=== PATIENT | female | born 1985 | race Caucasian/White ===

== ENCOUNTER 2016-06-08 12:27 | Emergency (ER) | payer SELFPAY ==
[~2016-06-08] VITALS: Ht 157.5 cm; Wt 62.0 kg
[2016-06-08 12:29] VITALS: BP 125/75; PULSE 98; RESP 17; TEMP 98.4; O2SAT 98
--- NOTE | 2016-06-08 12:44 | PD ---
Physical Exam Time Seen by Provider: 12:41 Narrative 30yo F w/ c/o fever for the past few days w/ onset of cough worse at night. Reports Chest tightness and SOB. Hx of activity induced Asthma and pneumonia. Similar symptoms of pneumonia. Fever 101.6 on Sunday. Reports body aches and RHODES. Patient stable. Patient seen in triage. Awaiting bed placement. Data Data Last Documented VS Vital Signs Date Time Temp Pulse Resp B/P Pulse Ox O2 Delivery O2 Flow Rate FiO2 06/08/16 12:29 98.4 98 17 125/75 98 MDM Supervised Visit with ISHMAEL: Asmita Aguila Jun 08, 2016 12:44
--- NOTE | 2016-06-08 13:02 | PD ---
HPI . Coughing for 5 days Chief Complaint: Cold / Flu Symptoms Time Seen by Provider: 13:01 Travel History International Travel<30 days: No Contact w/Intl Traveler<30days: No Traveled to known affect area: No History of Present Illness HPI 30-year-old female here with complaints of coughing for the past 5 days. On Sunday patient had a temperature of 101.6. Tells me she's not had a fever since then, but is complaining of increased amounts of coughing. Occasionally has some yellow/green/brown-looking mucus with the cough. She decided to come in for evaluation as she has had pneumonia in the past. She is accompanied by her [id number]. At time of examination she denies any fever, chills, chest pain, nausea, or shortness of breath PFSH Past Medical History ?: Not LMP: 05/2016 Social History Tobacco Use: Yes Allergies-Medications (Allergen,Severity, Reaction): Coded Allergies: No Known Allergies (Unverified , 06/08/16) Reported Meds & Prescriptions Reported Meds & Active Scripts Active Proair Hfa 8.5 GM Inh (Albuterol Sulfate) 90 Mcg/Act Aer 2 Puff INH Q6H PRN 108 mcg/actuation Zithromax Z-Kwaku (Azithromycin) 250 Mg Dspk 250 Mg PO DIRECTED 500 MG (2 tabs) day 1, then 1 tab days 2-5. Prednisone 50 Mg Tab 50 Mg PO DAILY Review of Systems General / Constitutional: No: Fever Eyes: No: Visual changes HENT: No: Headaches Cardiovascular: No: Chest Pain or Discomfort Respiratory: Positive: Cough, No: Shortness of Breath Gastrointestinal: No: Abdominal Pain Genitourinary: No: Dysuria Musculoskeletal: No: Pain Skin: No Rash Neurologic: No: Weakness Psychiatric: No: Depression Endocrine: No: Polydipsia Hematologic/Lymphatic: No: Easy Bruising Physical Exam Narrative GENERAL: AAO x 3, no acute distress, Well-nourished, well-developed patient. SKIN: Warm and dry. No visible rashes or bruising. HEAD: Normocephalic and atraumatic. EYES: No scleral icterus. No injection or drainage. ENT: No nasal drainage noted. Mucous membranes pink. Airway patent. Mild to moderate posterior pharynx erythema without exudates or edema. TMs normal bilaterally NECK: Supple, trachea midline. No JVD. No lymphadenopathy. CARDIOVASCULAR: Regular rate and rhythm without murmurs, gallops, or rubs. RESPIRATORY: Breath sounds equal bilaterally. No accessory muscle use. No rhonchi or rales. No wheezing. Dry cough heard throughout examination GASTROINTESTINAL: Abdomen soft, non-tender, nondistended. EXTREMITIES: No cyanosis or edema. BACK: Nontender without obvious deformity. No CVA tenderness. PSYCH: AAO x 3, normal affect. Data Data Last Documented VS Vital Signs Date Time Temp Pulse Resp B/P Pulse Ox O2 Delivery O2 Flow Rate FiO2 06/08/16 12:29 98.4 98 17 125/75 98 MDM Medical Decision Making Medical Screen Exam Complete: Yes Emergency Medical Condition: Yes Medical Record Reviewed: Yes Differential Diagnosis Bronchitis, pharyngitis, less likely pneumonia, sinusitis Narrative Course 30-year-old female here with complaints of coughing for the past 5 days. On Sunday patient had a temperature of 101.6. Tells me she's not had a fever since then, but is complaining of increased amounts of coughing. Occasionally has some yellow/green/brown-looking mucus with the cough. She decided to come in for evaluation as she has had pneumonia in the past. She is accompanied by her [id number]. At time of examination she denies any fever, chills, chest pain, nausea, or shortness of breath Patient seen and examined. She appears to have a bronchitis and pharyngitis. I'll go head and treat with Z-Kwaku, prednisone and Proair inhaler. Advised her that if her symptoms continue to worsen despite medications, to return to the emergency department for further evaluation. She will follow-up with her primary care provider. Patient verbalized understanding of instructions, questions were answered, and thanked me for their care. I advised them if their condition worsens, please return to the nearest emergency room for further care. Diagnosis Primary Impression: Acute bronchitis Qualified Code: J20.9 - Acute bronchitis, unspecified organism Additional Impression: Acute pharyngitis Qualified Code: J02.9 - Acute pharyngitis, unspecified etiology Patient Instructions: General Instructions Additional Instructions: As we discussed the cough can last 6-8 weeks. Take medications as prescribed. If you are a smoker, try to quit. Follow up with your primary care provider. If you develop sudden onset or worsening of shortness or breath, please go to the nearest emergency room. Please return to emergency department if your symptoms return or worsen. Follow up with your primary care provider. Take medications as prescribed. Med/Other Pt SpecificInfo: Prescription(s) given Scripts Albuterol 8.5 GM Inh (Proair Hfa 8.5 GM Inh)90 Mcg/Act Aer2 Puff INH Q6H PRN ( SHORTNESS OF BREATH) #1 INHALER Ref 0 108 mcg/actuation Prov:Kalli Awad MD 06/08/16 Azithromycin (Zithromax Z-Kwaku)250 Mg [id number] Mg PO DIRECTED #1 DSPK Ref 0 500 MG (2 tabs) day 1, then 1 tab days 2-5. Prov:Kalli Awad MD 06/08/16 Prednisone 50 Mg Tab50 Mg PO DAILY #5 TAB Prov:Kalli Awad MD 06/08/16 Disposition: 01 DISCHARGE HOME Condition: Stable Yesenia Bey Jun 08, 2016 13:02
[2016-06-08] MEDS ORDERED: ALBUAER3 INH (13:09)
[2016-06-08] MEDS ORDERED: ZITHTAB PO (13:09)
[2016-06-08] MEDS ORDERED: PRED50 PO (13:09)
== END 2016-06-08 13:20 | disposition home or self-care (01) ==
LOC: NEPK 12:27
DX: J20.9 Acute bronchitis, unspecified (principal); J02.9 Acute pharyngitis, unspecified; Z72.0 Tobacco use
CPT/HCPCS: 99283

== ENCOUNTER 2017-02-23 13:09 | Inpatient (IN) | payer SELFPAY ==
[~2017-02-23] VITALS: Ht 157.5 cm; Wt 62.3 kg
[~2017-02-23 13:09] MED LIST: ALBUAER3 INH; PRED50 PO; ZITHTAB PO
[2017-02-23 13:10] VITALS: BP 130/93; PULSE 77; RESP 18; TEMP 98.3; O2SAT 100
[2017-02-23] MEDS ORDERED: SODIUM CHLOR 0.9% 1000 ML INJ 1,000 ML IV SCH (14:13)
[2017-02-23] MEDS ORDERED: LIDOCAINE VISCOUS 2% SOLN 15 ML UDC PO ONE (14:15)
[2017-02-23] MEDS ORDERED: ONDANSETRON HCL 4 MG/2 ML VIAL IVP ONE (14:15)
[2017-02-23] MEDS ORDERED: PANTOPRAZOLE SODIUM 40 MG VIAL IVP ONE (14:15)
[2017-02-23] MEDS ORDERED: SODIUM CHLORIDE 0.9% FLUSH 10 ML FLUSH IV FLUSH PRN ×4 (14:15→16:15)
[2017-02-23] MEDS ORDERED: ALUMINUM/MAGNESIUM/SIMETH 30 ML CUP PO ONE (14:15)
[2017-02-23] MEDS ORDERED: MORPHINE SULFATE 4 MG/ML INJ IV PUSH ONE (14:15)
--- NOTE | 2017-02-23 14:28 | PD ---
HPI Chief Complaint: Abdominal Pain Time Seen by Provider: 14:08 Travel History International Travel<30 days: No Contact w/Intl Traveler<30days: No Traveled to known affect area: No History of Present Illness HPI This is a 31-year-old female who presents for evaluation of abdominal pain. Symptoms started this morning. She describes it as a sharp crampy pain in the epigastrium that radiates into the back and left upper quadrant. Symptoms are constant, associated with some nausea and vomiting. She reports a history of pancreatitis in the past. She reports daily alcohol use. Denies any history of abdominal surgeries. Denies fevers, chills, flank pain, dysuria, cough or congestion, rash or recent travel. She has no other complaints at this time. [facility] Past Medical History ?: Not LMP: 02/23/17 Social History Tobacco Use: Yes Allergies-Medications (Allergen,Severity, Reaction): Coded Allergies: No Known Allergies (Unverified Allergy, Unknown, 02/23/17) Reported Meds & Prescriptions Reported Meds & Active Scripts Active No Active Prescriptions or Reported Medications Review of Systems Except as stated in HPI: all other systems reviewed are Neg Physical Exam Narrative GENERAL: Well-nourished female who appears uncomfortable on initial examination SKIN: Warm and dry. HEAD: Atraumatic. Normocephalic. EYES: Pupils equal and round. No scleral icterus. No injection or drainage. ENT: No nasal bleeding or discharge. Mucous membranes pink and moist. NECK: Trachea midline. No JVD. CARDIOVASCULAR: Regular rate and rhythm. No murmur appreciated. RESPIRATORY: No accessory muscle use. Clear to auscultation. Breath sounds equal bilaterally. GASTROINTESTINAL: Abdomen soft, focal epigastric tenderness without guarding. No right upper quadrant tenderness. No CVA tenderness. MUSCULOSKELETAL: No obvious deformities. No clubbing. No cyanosis. No edema. NEUROLOGICAL: Awake and alert. No obvious cranial nerve deficits. Motor grossly within normal limits. Normal speech. PSYCHIATRIC: Appropriate mood and affect; insight and judgment normal. Data Data Last Documented VS Vital Signs Date Time Temp Pulse Resp B/P (MAP) Pulse Ox O2 Delivery O2 Flow Rate FiO2 02/23/17 14:45 18 02/23/17 13:10 98.3 77 130/93 (105) 100 Room Air Orders Orders Complete Blood Count With Diff (02/23/17 14:13) Comprehensive Metabolic Panel (02/23/17 14:13) Lipase (02/23/17 14:13) Urinalysis - C+S If Indicated (02/23/17 14:13) Iv Access Insert/Monitor (02/23/17 14:13) Ecg Monitoring (02/23/17 14:13) Oximetry (02/23/17 14:13) Morphine Inj (Morphine Inj) (02/23/17 14:15) Ondansetron Inj (Zofran Inj) (02/23/17 14:15) Pantoprazole Inj (Protonix Inj) (02/23/17 14:15) Sodium Chlor 0.9% 1000 Ml Inj (Ns 1000 M (02/23/17 14:13) Sodium Chloride 0.9% Flush (Ns Flush) (02/23/17 14:15) Al-Mag Hy-Si 40-40-4 Mg/Ml Liq (Mag-Al P (02/23/17 14:15) Lidocaine 2% Viscous (Xylocaine 2% Visco (02/23/17 14:15) Ed Urine Pregnancytest Poc (02/23/17 14:13) Morphine Inj (Morphine Inj) (02/23/17 14:52) Electrocardiogram (02/23/17 ) Potassium Chlor 20 Meq Premix (Kcl 20 Me (02/23/17 15:45) Potassium Chloride (Kcl) (02/23/17 15:45) Ct Abd/Pel W Iv Contrast(Rout) (02/23/17 15:41) Magnesium (Mg) (02/23/17 16:12) Comprehensive Metabolic Panel (02/24/17 06:00) Free Thyroxine (T4) (02/24/17 06:00) Hemoglobin (Hgb) A1c (02/24/17 06:00) Magnesium (Mg) (02/24/17 06:00) Phosphorus (Po4) (02/24/17 06:00) Thyroid Stimulating Hormone (02/24/17 06:00) Complete Blood Count With Diff (02/24/17 06:00) Admit Order (Ed Use Only) (02/23/17 16:15) Labs Laboratory Tests Test 02/23/17 14:40 White Blood Count 11.3 TH/MM3 Red Blood Count 3.84 MIL/MM3 Hemoglobin 13.7 GM/DL Hematocrit 40.1 % Mean Corpuscular Volume 104.5 FL Mean Corpuscular Hemoglobin 35.7 PG Mean Corpuscular Hemoglobin Concent 34.1 % Red Cell Distribution Width 15.0 % Platelet Count 195 TH/MM3 Mean Platelet Volume 9.5 FL Neutrophils (%) (Auto) 82.5 % Lymphocytes (%) (Auto) 12.7 % Monocytes (%) (Auto) 4.3 % Eosinophils (%) (Auto) 0.3 % Basophils (%) (Auto) 0.2 % Neutrophils # (Auto) 9.3 TH/MM3 Lymphocytes # (Auto) 1.4 TH/MM3 Monocytes # (Auto) 0.5 TH/MM3 Eosinophils # (Auto) 0.0 TH/MM3 Basophils # (Auto) 0.0 TH/MM3 CBC Comment DIFF FINAL Differential Comment Blood Urea Nitrogen 6 MG/DL Creatinine 0.61 MG/DL Random Glucose 144 MG/DL Total Protein 6.7 GM/DL Albumin 3.5 GM/DL Calcium Level 8.7 MG/DL Alkaline Phosphatase 109 U/L Aspartate Amino Transf (AST/SGOT) 76 U/L Alanine Aminotransferase (ALT/SGPT) 37 U/L Total Bilirubin 0.9 MG/DL Sodium Level 135 MEQ/L Potassium Level 2.5 MEQ/L Chloride Level 96 MEQ/L Carbon Dioxide Level 30.4 MEQ/L Anion Gap 9 MEQ/L Estimat Glomerular Filtration Rate 114 ML/MIN Lipase 60775 U/L MDM Medical Decision Making Medical Screen Exam Complete: Yes Emergency Medical Condition: Yes Medical Record Reviewed: Yes Differential Diagnosis Pancreatitis, biliary colic, peptic ulcer disease, gastroenteritis, colitis Narrative Course 31-year-old female with one-day history of epigastric pain, nausea and vomiting. Plan is for basic lab work. The patient be given IV fluids, Zofran, morphine, Protonix, GI cocktail. CBC reveals a WBC count of 11.3. CMP reveals a lipase of 15,718, potassium 2.5. The patient will be given 40 mEq of oral potassium and 20 mEq of IV potassium. She was placed on ECG monitoring. Twelve-lead EKG was obtained. A CT of the abdomen pelvis has been ordered and the patient will be admitted for further treatment of her pancreatitis, hypokalemia. Diagnosis Primary Impression: Pancreatitis Additional Impression: Hypokalemia Admitting Information Admitting Physician Requests: Admit Scripts No Active Prescriptions or Reported Meds Alexys Lara Feb 23, 2017 14:28
[2017-02-23] MEDS ORDERED: MORPHINE SULFATE 8 MG/ML INJ ONE (14:52)
[2017-02-23 15:07] LABS: AUTOMATED NEUTROPHIL # 9.3 TH/MM3 (1.8-7.7); BASOPHIL % 0.2 % (0.0-2.0); EOSINOPHIL % 0.3 % (0.0-4.0); HEMATOCRIT 40.1 % (35.0-46.0); HEMOGLOBIN 13.7 GM/DL (11.6-15.3); LYMPH % 12.7 % (9.0-44.0); LYMPHOCYTE # 1.4 TH/MM3 (1.0-4.8); MEAN CELL VOLUME 104.5 FL (80.0-100.0); MEAN CORPUSCULAR HEMOGLOBIN 35.7 PG (27.0-34.0); MEAN CORPUSCULAR HGB CONC 34.1 % (32.0-36.0); MEAN PLATELET VOLUME 9.5 FL (7.0-11.0); MONO % 4.3 % (0.0-8.0); MONOCYTE # 0.5 TH/MM3 (0-0.9); NEUT % 82.5 % (16.0-70.0); PLATELET COUNT 195 TH/MM3 (150-450); RED BLOOD COUNT 3.84 MIL/MM3 (4.00-5.30); WHITE BLOOD COUNT 11.3 TH/MM3 (4.0-11.0)
[2017-02-23 15:38] LABS: ALBUMIN 3.5 GM/DL (3.4-5.0); ALKALINE PHOSPHATASE 109 U/L (45-117); ALT (GPT) 37 U/L (10-53); AST (GOT) 76 U/L (15-37); BICARBONATE 30.4 MEQ/L (21.0-32.0); BLOOD UREA NITROGEN 6 MG/DL (7-18); CALCIUM 8.7 MG/DL (8.5-10.1); CHLORIDE 96 MEQ/L (98-107); CREATININE 0.61 MG/DL (0.50-1.00); GLOMERULAR FILTRATION RATE 114 ML/MIN (>89); GLUCOSE,RANDOM 144 MG/DL (74-106); LIPASE 15718 U/L (73-393); SODIUM (NA) 135 MEQ/L (136-145); TOTAL BILIRUBIN ADULT 0.9 MG/DL (0.2-1.0); TOTAL PROTEIN 6.7 GM/DL (6.4-8.2)
[2017-02-23] MEDS ORDERED: POTASSIUM CHLORIDE 20 MEQ CONTROLLED RELEASE TAB PO ONE (15:45)
[2017-02-23] MEDS ORDERED: POTASSIUM CHLOR 20 MEQ PREMIX 100 ML IV ONE (15:45)
[2017-02-23] MEDS ORDERED: MORPHINE SULFATE 2 MG/ML INJ IV PUSH PRN ×2 (16:15)
[2017-02-23] MEDS ORDERED: METOCLOPRAMIDE HCL 10 MG/2 ML VIAL IV PUSH PRN (16:15)
[2017-02-23] MEDS ORDERED: HALOPERIDOL LACTATE 5 MG/ML AMP IM PRN (16:15)
[2017-02-23] MEDS ORDERED: LORazepam 2 MG/ML VIAL IV PUSH PRN ×4 (16:15)
[2017-02-23] MEDS ORDERED: LACTULOSE SYRUP 20 GM/30 ML CUP PO PRN (16:15)
[2017-02-23] MEDS ORDERED: BISACODYL 10 MG SUPP RECTAL PRN (16:15)
[2017-02-23] MEDS ORDERED: LORazepam 2 MG TAB PO PRN (16:15)
[2017-02-23] MEDS ORDERED: ONDANSETRON HCL 4 MG/2 ML VIAL IVP PRN (16:15)
[2017-02-23] MEDS ORDERED: NALOXONE HCL 0.4 MG/ML AMP IV PUSH PRN (16:15)
[2017-02-23] MEDS ORDERED: MAGNESIUM HYDROXIDE SUSP 30 ML CUP PO PRN (16:15)
[2017-02-23] MEDS ORDERED: SENNOSIDES 8.6 MG TAB PO PRN (16:15)
[2017-02-23] MEDS ORDERED: cloNIDine HCL 0.1 MG TAB PO PRN (16:15)
[2017-02-23] MEDS ORDERED: LORazepam 1 MG TAB PO PRN (16:15)
[2017-02-23] MEDS ORDERED: ACETAMINOPHEN 325 MG TAB PO PRN (16:15)
[2017-02-23] MEDS ORDERED: FLUMAZENIL 0.5 MG/5 ML VIAL IV PUSH PRN (16:15)
--- NOTE | 2017-02-23 16:42 | RADRPT ---
EXAM DATE/TIME: 02/23/2017 16:16 [facility] COMPARISON: No previous studies available for comparison. INDICATIONS : Epigasteric pain that radiates to her back.LLQ. IV CONTRAST: 100 cc Omnipaque 350 (iohexol) IV ORAL CONTRAST: No oral contrast ingested. RADIATION DOSE: 5.52 CTDIvol (mGy) MEDICAL HISTORY : None SURGICAL HISTORY : None. ENCOUNTER: Initial ACUITY: 2 days PAIN SCALE: 9/10 LOCATION: Left upper quadrant TECHNIQUE: Volumetric scanning of the abdomen and pelvis was performed. Using automated exposure control and ad justment of the mA and/or kV according to patient size, radiation dose was kept as low as reasonably achievable to obtain optimal diagnostic quality images. DICOM format image data is available electro nically for review and comparison. FINDINGS: Lung base is clear. Moderate fatty replacement to the liver. Spleen unremarkable. Minimal peripanc reatic edema suggesting pancreatitis. Portal vein and splenic vein patent No gallstones Unremarkable kidneys Pelvic contents are unremarkable. There is no free fluid. Review of bone windows reveals only degen erative changes with mild scoliosis. CONCLUSION: Small to moderate radiograph findings of pancreatitis. Trace ascites in the lesser sac is evident. I don't see gallstones. De Marinelli MD FACR on February 23, 2017 at 16:38 Board Certified Radiologist. This report was verified electronically.
[2017-02-23] MEDS ORDERED: IOHEXOL 350 MG/ML 10 ML VIAL (for RAD DIAG) IVCONTRAST ONE (16:52)
[2017-02-23 16:57] LABS: MAGNESIUM 1.7 MG/DL (1.5-2.5); PHOSPHORUS 2.3 MG/DL (2.5-4.9); TRIGLYCERIDES 73 MG/DL (42-150)
--- NOTE | 2017-02-23 16:59 | HHI.HP ---
HPI Service [facility] Hospitalists Primary Care Physician No Primary Care Physician Admission Diagnosis Pancreatitis, hypokalemia Diagnoses: Chief Complaint: Abdominal pain Travel History International Travel<30 Days: No Contact w/Intl Traveler <30 Da: No Traveled to Known Affected Are: No History of Present Illness Patient is a 31-year-old female who presents to [facility] emergency Department for evaluation of abdominal pain. Patient states that her symptoms have started this morning. She states that she has a sharp crampy pain in the epigastrium that radiates into her back and up into her left upper quadrant. Her symptoms are constant which they are associated with some nausea and some vomiting. She reports that she's had pancreatitis once before in the past. She reports that she does shots of alcohol every day. Denies any history of any abdominal surgery. Only surgery she states is dilatation of her urethra Denies any fever or chills flank pain dysuria cough or congestion recent travel no other complaints She was found to have pancreatitis with a quite elevated amylase and will be admitted and GI will be consult and will be kept nothing by mouth Review of Systems Constitutional: DENIES: Diaphoretic episodes, Fatigue, Fever, Weight gain, Weight loss, Chills, Dizziness, Change in appetite, Night Sweats Endocrine: DENIES: Abnorml menstrual pattern, Heat/cold intolerance, Polydipsia , Polyuria, Polyphagia Eyes: DENIES: Blurred vision, Diplopia, Eye inflammation, Eye pain, Vision loss , Photosensitivity Ears, nose, mouth, throat: DENIES: Tinnitus, Hearing loss, Vertigo, Nasal discharge, Oral lesions, Throat pain, Running Nose, Epistaxis, Sinus Pain, Toothache, Odynophagia Respiratory: DENIES: Apneas, Cough, Snoring, Wheezing, Hemoptysis, Sputum production Cardiovascular: DENIES: Chest pain, Palpitations, Syncope, Dyspnea on Exertion , PND, Lower Extremity Edema Gastrointestinal: COMPLAINS OF: Abdominal pain, Nausea, Vomiting, DENIES: Black stools, Bloody stools, Constipation, Diarrhea, Difficulty Swallowing, Anorexia Genitourinary: DENIES: Abnormal vaginal bleeding, Dysmenorrhea, Dyspareunia, Sexual dysfunction, Urgency, Hematuria, Dysuria, Nocturia Musculoskeletal: DENIES: Joint pain, Muscle aches, Stiffness, Joint Swelling Integumentary: DENIES: Abnormal pigmentation, Pruritus, Rash, Nail changes, Breast masses Hematologic/lymphatic: DENIES: Bruising, Lymphadenopathy Immunologic/allergic: DENIES: Eczema, Urticaria Neurologic: DENIES: Abnormal gait, Headache, Localized weakness, Paresthesias, Seizures, Speech Problems, Tremor, Poor Balance Psychiatric: COMPLAINS OF: Anxiety, DENIES: Confusion, Mood changes, Depression , Hallucinations, Agitation, Suicidal Ideation, Homicidal Ideation, Delusions Except as stated in HPI: all other systems reviewed are Neg Past Family Social History Past Medical History Pancreatitis History of multiple urinary tract infections as a child Past Surgical History May be urethral dilatation versus ureteral dilatation Reported Medications Reported Meds & Active Scripts Active No Active Prescriptions or Reported Medications Librax on occasion Allergies: Coded Allergies: No Known Allergies (Unverified Allergy, Unknown, 02/23/17) Active Ordered Medications Current Medications Morphine Sulfate (Morphine Inj) 4 mg ONCE ONCE IV PUSH ; Start 02/23/17 at 14:15 ; Stop 02/23/17 at 14:16; Status DC Ondansetron HCl (Zofran Inj) 4 mg ONCE ONCE IVP Last administered on 02/23/17at 14:45; Start 02/23/17 at 14:15; Stop 02/23/17 at 14:16; Status DC Pantoprazole Sodium (Protonix Inj) 40 mg ONCE ONCE IVP Last administered on 02/23/17at 14:44; Start 02/23/17 at 14:15; Stop 02/23/17 at 14:16; Status DC Sodium Chloride 1,000 ml @ 1,000 mls/hr Q1H IV Last administered on 02/23/17at 14:44; Start 02/23/17 at 14:13; Stop 02/23/17 at 15:12; Status DC Sodium Chloride (NS Flush) 2 ml UNSCH PRN IV FLUSH FLUSH AFTER USING IV ACCESS ; Start 02/23/17 at 14:15 Al Hydrox/Mg Hydrox/Simethicone (Mag-Al Plus Susp Liq) 30 ml ONCE ONCE PO Last administered on 02/23/17at 14:45; Start 02/23/17 at 14:15; Stop 02/23/17 at 14: 16; Status DC Lidocaine HCl (Xylocaine 2% Viscous) 15 ml ONCE ONCE PO Last administered on at 14:45; Start 02/23/17 at 14:15; Stop 02/23/17 at 14:16; Status DC Morphine Sulfate (Morphine Inj) 8 mg STK-MED ONCE .ROUTE Last administered on at 14:56; Start 02/23/17 at 14:52; Stop 02/23/17 at 14:53; Status DC Potassium Chloride 100 ml @ 50 mls/hr BOLUS ONCE IV Last administered on at 15:54; Start 02/23/17 at 15:45; Stop 02/23/17 at 17:44 Potassium Chloride (KCl) 40 meq ONCE ONCE PO Last administered on 02/23/17at 15: 47; Start 02/23/17 at 15:45; Stop 02/23/17 at 15:46; Status DC Sodium Chloride (NS Flush) 2 ml UNSCH PRN IV FLUSH FLUSH AFTER USING IV ACCESS ; Start 02/23/17 at 16:15 Sodium Chloride (NS Flush) 2 ml BID IV FLUSH ; Start 02/23/17 at 21:00 Acetaminophen (Tylenol) 650 mg Q4H PRN PO TEMP > 100.4; Start 02/23/17 at 16:15 Ondansetron HCl (Zofran Inj) 4 mg Q6H PRN IVP NAUSEA OR VOMITING; Start at 16:15 Metoclopramide HCl (Reglan Inj) 5 mg Q6H PRN IV PUSH NAUSEA OR VOMITING; Start 02/23/17 at 16:15; Status UNV Zolpidem Tartrate (Ambien) 5 mg HS PRN PO INSOMNIA; Start 02/23/17 at 16:15 Enoxaparin Sodium (Lovenox Inj) 40 mg Q24H SQ ; Start 02/23/17 at 16:15; Status UNV Morphine Sulfate (Morphine Inj) 2 mg Q3H PRN IV PUSH Pain 3-5; if unable to take PO; Start 02/23/17 at 16:15 Morphine Sulfate (Morphine Inj) 4 mg Q3H PRN IV PUSH Pain 6-10;if unable to take PO; Start 02/23/17 at 16:15 Morphine Sulfate (Morphine Inj) 4 mg Q1H PRN IV PUSH PAIN SCALE 7-10 ( INTRACTABLE); Start 02/23/17 at 16:15 Morphine Sulfate (Morphine Inj) 4 mg Q3H PRN IV PUSH BREAKTHROUGH PAIN; Start 02/23/17 at 16:15 Naloxone HCl (Narcan Inj) 0.4 mg UNSCH PRN IV PUSH SEE LABEL COMMENTS; Start at 16:15 Senna/Docusate Sodium (Sandy-Colace) 1 tab BID PO ; Start 02/23/17 at 21:00 Magnesium Hydroxide (Milk Of Magnesia Liq) 30 ml Q12H PRN PO Mild constipation ; Start 02/23/17 at 16:15 Sennosides (Senokot) 17.2 mg Q12H PRN PO Moderate constipation; Start 02/23/17 at 16:15 Bisacodyl (Dulcolax Supp) 10 mg DAILY PRN RECTAL SEVERE CONSITIPATION; Start at 16:15 Lactulose (Lactulose Liq) 30 ml DAILY PRN PO SEVERE CONSITIPATION; Start at 16:15 Flumazenil (Romazicon Inj) 0.2 mg Q1M PRN IV PUSH SEE LABEL COMMENTS; Start 02/23/17 at 16:15; Status UNV Lorazepam (Ativan) 1 mg Q4H PRN PO CIWA 8 - 10; Start 02/23/17 at 16:15; Status UNV Lorazepam (Ativan Inj) 1 mg Q4H PRN IV PUSH CIWA 8 - 10; Start 02/23/17 at 16:15 ; Status UNV Lorazepam (Ativan) 2 mg Q2H PRN PO CIWA 11-14; Start 02/23/17 at 16:15; Status UNV Lorazepam (Ativan Inj) 2 mg Q2H PRN IV PUSH CIWA 11-14; Start 02/23/17 at 16:15 ; Status UNV Lorazepam (Ativan Inj) 2 mg Q1H PRN IV PUSH CIWA 15-20; Start 02/23/17 at 16:15 ; Status UNV Lorazepam (Ativan Inj) 2 mg Q15M PRN IV PUSH CIWA > 20; Start 02/23/17 at 16:15 ; Status UNV Haloperidol Lactate (Haldol Inj) 2 mg Q15M PRN IM SEE LABEL COMMENTS; Start 02/23/17 at 16:15; Status UNV Sodium Chloride (NS Flush) 2 ml UNSCH PRN IV FLUSH FLUSH AFTER USING IV ACCESS ; Start 02/23/17 at 16:15; Status UNV Sodium Chloride (NS Flush) 2 ml BID IV FLUSH ; Start 02/23/17 at 21:00; Status UNV Potassium Chloride/Dextrose/ Sod Cl 1,000 ml @ 100 mls/hr Q10H IV ; Start at 17:00 Multivitamins 10 ml/Folic Acid 1 mg/Sodium Chloride 510.2 ml @ 125 mls/hr Q24H IV ; Start 02/23/17 at 16:15; Stop 02/28/17 at 16:14; Status UNV Thiamine HCl 100 mg/Sodium Chloride 101 ml @ 100 mls/hr Q24H IV ; Start at 16:15; Stop 02/26/17 at 16:14; Status UNV Thiamine HCl (Vitamin B1) 100 mg DAILY PO ; Start 02/27/17 at 09:00; Status UNV Famotidine (Pepcid) 20 mg BID PO ; Start 02/23/17 at 21:00; Status UNV Clonidine (Catapres) 0.1 mg Q6H PRN PO SEE LABEL COMMENTS; Start 02/23/17 at 16: 15; Status UNV Sodium Chloride (NS Flush) 2 ml UNSCH PRN IV FLUSH FLUSH AFTER USING IV ACCESS ; Start 02/23/17 at 16:15; Status UNV Sodium Chloride (NS Flush) 2 ml BID IV FLUSH ; Start 02/23/17 at 21:00; Status UNV Family History Denies Social History Drinks alcohol daily PATIENT DRINKS MULTIPLE shots Smokes some marijuana on occasion Smokes some black and mild cigars Denies any IV drug abuse or pill abuse Physical Exam Vital Signs Vital Signs Date Time Temp Pulse Resp B/P (MAP) Pulse Ox O2 Delivery O2 Flow Rate FiO2 02/23/17 14:45 18 02/23/17 13:10 98.3 77 18 130/93 (105) 100 Room Air Physical Exam GENERAL: This is a well-nourished, well-developed patient, in moderate distress. SKIN: No rashes, ecchymoses or lesions. Cool and dry. HEAD: Atraumatic. Normocephalic. No temporal or scalp tenderness. EYES: Pupils equal round and reactive. Extraocular motions intact. No scleral icterus. No injection or drainage. ENT: Nose without bleeding, purulent drainage or septal hematoma. Throat without erythema, tonsillar hypertrophy or exudate. Uvula midline. Airway patent. NECK: Trachea midline. No JVD or lymphadenopathy. Supple, nontender, no meningeal signs. CARDIOVASCULAR: Regular rate and rhythm without murmurs, gallops, or rubs. S1 and S2 no S3 or S4 RESPIRATORY: Clear to auscultation. Breath sounds equal bilaterally. No wheezes , rales, or rhonchi. GASTROINTESTINAL: Abdomen soft, diffusely tender, nondistended. No hepato- splenomegaly, or palpable masses. Mild guarding. MUSCULOSKELETAL: Extremities without clubbing, cyanosis, or edema. No joint tenderness, effusion, or edema noted. No calf tenderness. Negative Homans sign bilaterally. NEUROLOGICAL: Awake and alert. Cranial nerves II through XII intact. Motor and sensory grossly within normal limits. Five out of 5 muscle strength in all muscle groups. Normal speech. Insight and judgment is good Mood and behavior is appropriate Laboratory Laboratory Tests Test 02/23/17 14:40 White Blood Count 11.3 Red Blood Count 3.84 Hemoglobin 13.7 Hematocrit 40.1 Mean Corpuscular Volume 104.5 Mean Corpuscular Hemoglobin 35.7 Mean Corpuscular Hemoglobin Concent 34.1 Red Cell Distribution Width 15.0 Platelet Count 195 Mean Platelet Volume 9.5 Neutrophils (%) (Auto) 82.5 Lymphocytes (%) (Auto) 12.7 Monocytes (%) (Auto) 4.3 Eosinophils (%) (Auto) 0.3 Basophils (%) (Auto) 0.2 Neutrophils # (Auto) 9.3 Lymphocytes # (Auto) 1.4 Monocytes # (Auto) 0.5 Eosinophils # (Auto) 0.0 Basophils # (Auto) 0.0 CBC Comment DIFF FINAL Differential Comment Blood Urea Nitrogen 6 Creatinine 0.61 Random Glucose 144 Total Protein 6.7 Albumin 3.5 Calcium Level 8.7 Alkaline Phosphatase 109 Aspartate Amino Transf (AST/SGOT) 76 Alanine Aminotransferase (ALT/SGPT) 37 Total Bilirubin 0.9 Sodium Level 135 Potassium Level 2.5 Chloride Level 96 Carbon Dioxide Level 30.4 Anion Gap 9 Estimat Glomerular Filtration Rate 114 Lipase 70129 Result Diagram: 02/23/17 1440 02/23/[address] abdomen pending Caprini VTE Risk Assessment Caprini VTE Risk Assessment: No/Low Risk (score <= 1) Caprini Risk Assessment Model Point Value = 1 Point Value = 2 Point Value = 3 Point Value = 5 Age 41-60 Minor surgery BMI > 25 kg/m2 Swollen legs Varicose veins or History of unexplained or recurrent spontaneous Oral contraceptives or hormone replacement Sepsis (< 1 month) Serious lung disease, including pneumonia (< 1 month) Abnormal pulmonary function Acute myocardial infarction Congestive heart failure (< 1 month) History of inflammatory bowel disease Medical patient at bed rest Age 61-74 Arthroscopic surgery Major open surgery (> 45 min) Laparoscopic surgery (> 45 min) Malignancy Confined to bed (> 72 hours) Immobilizing plaster cast Central venous access Age >= 75 History of VTE Family history of VTE Factor V Leiden Prothrombin [id number] Lupus anticoagulant Anticardiolipin antibodies Elevated serum homocysteine Heparin-induced thrombocytopenia Other congenital or acquired thrombophilia Stroke (< 1 month) Elective arthroplasty Hip, pelvis, or leg fracture Acute spinal cord injury (< 1 month) Prophylaxis Regimen Total Risk Factor Score Risk Level Prophylaxis Regimen 0-1 Low Early ambulation 2 Moderate Order ONE of the following: *Sequential Compression Device (SCD) *Heparin 5000 units SQ BID 3-4 Higher Order ONE of the following medications: *Heparin 5000 units SQ TID *Enoxaparin/Lovenox 40 mg SQ daily (WT < 150 kg, CrCl > 30 mL/min) *Enoxaparin/Lovenox 30 mg SQ daily (WT < 150 kg, CrCl > 10-29 mL/min) *Enoxaparin/Lovenox 30 mg SQ BID (WT < 150 kg, CrCl > 30 mL/min) AND/OR *Sequential Compression Device (SCD) 5 or more Highest Order ONE of the following medications: *Heparin 5000 units SQ TID (Preferred with Epidurals) *Enoxaparin/Lovenox 40 mg SQ daily (WT < 150 kg, CrCl > 30 mL/min) *Enoxaparin/Lovenox 30 mg SQ daily (WT < 150 kg, CrCl > 10-29 mL/min) *Enoxaparin/Lovenox 30 mg SQ BID (WT < 150 kg, CrCl > 30 mL/min) AND *Sequential Compression Device (SCD) Assessment and Plan Assessment and Plan Abdominal pain with pancreatitis with lipase of 15,718 Nothing by mouth Continue on IV fluids Consult gastroenterology Pain control CAT scan of the abdomen and pelvis is still pending Nausea and vomiting continue on anti-emetics Chronic alcohol use recommend cessation continue on CIWA protocol MULTIvitamin thiamine and folic acid Severe hypokalemia from nausea and vomiting will replace Mild leukocytosis -check a.m. labs Replace potassium A.m. labs Pain control GI prophylaxis DVT prophylaxis Code Status Full code Discussed Condition With Discussed with RN and patient and emergency room physician and emergency room physician talent acquisition assistant Physician Certification 2 Midnight Certification Type: Admission for Inpatient Services Order for Inpatient Services The services are ordered in accordance with Medicare regulations or non- Medicare payer requirements, as applicable. In the case of services not specified as inpatient-only, they are appropriately provided as inpatient services in accordance with the 2-midnight benchmark. Estimated LOS (days): 3 days is the estimated time the patient will need to remain in the hospital, assuming treatment plan goals are met and no additional complications. Post-Hospital Plan: De Ashton DO Feb 23, 2017 16:59
[2017-02-23] MEDS: D5-1/2 NS + KCL 20 MEQ INJ 1,000 ML IV SCH (17:00)
[2017-02-23 18:20] VITALS: BP 138/82; PULSE 71; RESP 20; TEMP 98.1; O2SAT 98
[2017-02-23] MEDS: MORPHINE SULFATE 2 MG/ML INJ IV PUSH PRN (18:26)
[2017-02-23] MEDS: ENOXAPARIN SODIUM 40 MG/0.4 ML SYRINGE SQ SCH (18:27)
[2017-02-23] MEDS: THIAMINE INJ 100 MG in SODIUM CHLORIDE 0.9% INJ 100 ML IV SCH (19:05)
[2017-02-23 20:00] VITALS: BP 134/84; PULSE 67; PULSE 70; RESP 18; TEMP 97.6; O2SAT 98
[2017-02-23] MEDS: SODIUM CHLORIDE 0.9% FLUSH 10 ML FLUSH IV FLUSH SCH (20:16)
[2017-02-23] MEDS: MULTIVITAMIN INJ 10 ML, FOLIC ACID INJ 1 MG in SODIUM CHLORID 0.9% 500 ML INJ 500 ML IV SCH (20:23)
[2017-02-23] MEDS: FAMOTIDINE 20 MG TAB PO SCH (20:32)
[2017-02-23] MEDS: DOCUSATE SODIUM 50 MG/SENNA 8.6 MG TAB PO SCH (20:32)
[2017-02-23] MEDS ORDERED: SODIUM CHLORIDE 0.9% FLUSH 10 ML FLUSH IV FLUSH SCH ×2 (21:00)
[2017-02-23] MEDS: ZOLPIDEM TARTRATE 5 MG TAB PO PRN (22:15)
[2017-02-24] VITALS (8 sets, daily range): BP systolic 100–115; BP diastolic 57–78; PULSE 80–93; RESP 16–18; TEMP 98–98.5; O2SAT 96–100
[2017-02-24] MEDS: D5-1/2 NS + KCL 20 MEQ INJ 1,000 ML IV SCH ×3 (00:46→22:24)
[2017-02-24] MEDS: MORPHINE SULFATE 2 MG/ML INJ IV PUSH PRN ×6 (03:42→21:24)
[2017-02-24] MEDS: FAMOTIDINE 20 MG TAB PO SCH ×2 (09:27→21:08)
[2017-02-24] MEDS: DOCUSATE SODIUM 50 MG/SENNA 8.6 MG TAB PO SCH ×2 (09:27→21:08)
[2017-02-24] MEDS: SODIUM CHLORIDE 0.9% FLUSH 10 ML FLUSH IV FLUSH SCH ×2 (09:31→21:08)
[2017-02-24 10:52] LABS: AUTOMATED NEUTROPHIL # 6.6 TH/MM3 (1.8-7.7); BASOPHIL % 0.3 % (0.0-2.0); EOSINOPHIL # 0.2 TH/MM3 (0-0.4); EOSINOPHIL % 1.8 % (0.0-4.0); HEMATOCRIT 37.3 % (35.0-46.0); HEMOGLOBIN 12.5 GM/DL (11.6-15.3); LYMPHOCYTE # 1.8 TH/MM3 (1.0-4.8); MEAN CELL VOLUME 105.7 FL (80.0-100.0); MEAN CORPUSCULAR HEMOGLOBIN 35.3 PG (27.0-34.0); MEAN CORPUSCULAR HGB CONC 33.4 % (32.0-36.0); MEAN PLATELET VOLUME 9.6 FL (7.0-11.0); MONOCYTE # 0.5 TH/MM3 (0-0.9); NEUT % 71.9 % (16.0-70.0); PLATELET COUNT 154 TH/MM3 (150-450); RED BLOOD COUNT 3.53 MIL/MM3 (4.00-5.30); RED CELL DISTRIBUTION WIDTH 15.7 % (11.6-17.2); WHITE BLOOD COUNT 9.1 TH/MM3 (4.0-11.0)
[2017-02-24 11:00] LABS: HEMOGLOBIN A1C 5.5 % (4.3-6.0)
[2017-02-24 11:23] LABS: AST (GOT) 46 U/L (15-37); BLOOD UREA NITROGEN 4 MG/DL (7-18); CALCIUM 7.7 MG/DL (8.5-10.1); CHLORIDE 103 MEQ/L (98-107); CREATININE 0.47 MG/DL (0.50-1.00); GLOMERULAR FILTRATION RATE 155 ML/MIN (>89); GLUCOSE,RANDOM 92 MG/DL (74-106); MAGNESIUM 1.7 MG/DL (1.5-2.5); SODIUM (NA) 139 MEQ/L (136-145)
[2017-02-24 11:28] LABS: ALKALINE PHOSPHATASE 87 U/L (45-117); ALT (GPT) 28 U/L (10-53); FREE T4 0.86 NG/DL (0.76-1.46); LIPASE 8318 U/L (73-393); PHOSPHORUS 2.6 MG/DL (2.5-4.9); TOTAL BILIRUBIN ADULT 0.7 MG/DL (0.2-1.0); TOTAL PROTEIN 5.9 GM/DL (6.4-8.2)
--- NOTE | 2017-02-24 12:05 | HHI.PR ---
Subjective Remarks Follow-up Acute recurrent pancreatitis 02/24/17-patient seen and examined, still complains of abdominal pain however denies any nausea or vomiting Objective Vitals Vital Signs Date Time Temp Pulse Resp B/P (MAP) Pulse Ox O2 Delivery O2 Flow Rate FiO2 02/24/17 08:08 98.5 85 17 104/65 (78) 96 02/24/17 04:00 98.5 80 18 114/78 (90) 98 02/24/17 01:12 98 02/24/17 00:00 98.5 93 18 115/57 (76) 96 02/23/17 20:00 97.6 67 18 134/84 (101) 98 02/23/17 20:00 70 02/23/17 18:21 02/23/17 18:20 98.1 71 20 138/82 (100) 98 02/23/17 14:45 18 02/23/17 13:10 98.3 77 18 130/93 (105) 100 Room Air I/O 02/23/17 02/23/17 02/23/17 02/24/17 02/24/17 02/24/17 07:00 15:00 23:00 07:00 15:00 23:00 Intake Total 1000 ml 0 ml Balance 1000 ml 0 ml Intake Oral 0 ml IV Total 1000 ml # Voids 1 # Bowel Movements 0 Result Diagram: 02/24/17 0924 02/24/17 0924 Imaging Last Impressions Abdomen/Pelvis CT 02/23/17 1541 Signed Impressions: Service Date/Time: Thursday, February 23, 2017 16:16 - CONCLUSION: Small to moderate radiograph findings of pancreatitis. Trace ascites in the lesser sac is evident. I don't see gallstones. De Marinelli MD FACR Objective Remarks GENERAL: NAD SKIN: Warm and dry. HEAD: Normocephalic. EYES: No scleral icterus. No injection or drainage. NECK: Supple, trachea midline. No JVD or lymphadenopathy. CARDIOVASCULAR: Regular rate and rhythm without murmurs, gallops, or rubs. RESPIRATORY: Breath sounds equal bilaterally. No accessory muscle use. GASTROINTESTINAL: Abdomen soft, mildly tender, nondistended. +BS MUSCULOSKELETAL: No cyanosis, or edema. BACK: Nontender without obvious deformity. No CVA tenderness. A/P Problem List: (1) Acute recurrent pancreatitis ICD Code: K85.90 - Acute pancreatitis without necrosis or infection, unspecified (2) Hypokalemia ICD Code: E87.6 - Hypokalemia Status: Acute Assessment and Plan 31-year-old female with Acute recurrent pancreatitis Lipase improving with IV fluid hydration Check all bladder ultrasound to rule out gallstone Continue with aggressive medical management pending consultation from GI Continue with IV fluid hydration, nothing by mouth, antiemetic, pain management accordingly Hypokalemia Replace electrolytes accordingly DVT prophylaxis: Bilateral SCDs GI prophylaxis: PPI UA pending Lucas Jordan MD Feb 24, 2017 12:05
--- NOTE | 2017-02-24 12:47 | EKG ---
Date Performed: 02/23/2017 Time Performed: 15:49:57 PTAGE: 31 years EKG: Sinus rhythm Diffuse nonspecific T-wave changes ABNORMAL ECG NO PREVIOUS TRACING DOCTOR: Juvencio Lawrence Interpretating Date/Time 02/24/2017 12:46:39
[2017-02-24 13:03] LABS: AMORPHOUS SEDIMENT, URINE OCC; BACTERIA, URINE RARE /hpf; BILIRUBIN, URINE NEG (NEG); BLOOD, URINE LARGE (NEG); GLUCOSE,URINE NEG (NEG); KETONE, URINE NEG (NEG); MUCUS URINE FEW /lpf (OCC); NITRITE,URINE NEG (NEG); SQUAMOUS EPITHELIAL CELL URINE 6 /hpf (0-5); URINE COLOR YELLOW (YELLW/STRAW); URINE LEUKOCYTE ESTERASE NEG (NEG)
--- NOTE | 2017-02-24 15:50 | PD.CONS ---
HPI History of Present Illness This is a 31 year old female with hx etoh abuse and pancreatitis who presented with abd pain, n/v on admission. Found to have extremely elevated lipase, CT findings suggestive mild to moderate acute pancreatitis. She has had prior episode of this in the past but has continued to drink. Pos for benzodiazepines , marijuana, opiates. PFSH Past Medical History Pancreatitis History of multiple urinary tract infections as a child Past Surgical History May be urethral dilatation versus ureteral dilatation Coded Allergies: No Known Allergies (Unverified Allergy, Unknown, 02/23/17) Family History Denies Social History Drinks alcohol daily PATIENT DRINKS MULTIPLE shots Smokes some marijuana on occasion Smokes some black and mild cigars Denies any IV drug abuse or pill abuse pos for marijuana, benzodiazepines, opiates Review of Systems Constitutional: DENIES: Weight loss Endocrine: DENIES: Polydipsia Eyes: DENIES: Blurred vision Ears, nose, mouth, throat: DENIES: Hearing loss Respiratory: DENIES: Wheezing Cardiovascular: DENIES: Chest pain Gastrointestinal: COMPLAINS OF: Abdominal pain, DENIES: Black stools, Bloody stools, Constipation, Diarrhea, Nausea, Vomiting, Hematemesis Genitourinary: DENIES: Hematuria Musculoskeletal: DENIES: Joint Swelling Integumentary: DENIES: Jaundice Immunologic/allergic: DENIES: Eczema Neurologic: DENIES: Abnormal gait Psychiatric: DENIES: Confusion GI Exam Vitals I&O Vital Signs Date Time Temp Pulse Resp B/P (MAP) Pulse Ox O2 Delivery O2 Flow Rate FiO2 02/24/17 12:35 98.0 86 16 106/68 (81) 97 02/24/17 08:08 98.5 85 17 104/65 (78) 96 02/24/17 08:00 86 02/24/17 04:00 98.5 80 18 114/78 (90) 98 02/24/17 01:12 98 02/24/17 00:00 98.5 93 18 115/57 (76) 96 02/23/17 20:00 97.6 67 18 134/84 (101) 98 02/23/17 20:00 70 02/23/17 18:21 02/23/17 18:20 98.1 71 20 138/82 (100) 98 I/O 02/23/17 02/23/17 02/23/17 02/24/17 02/24/17 02/24/17 07:00 15:00 23:00 07:00 15:00 23:00 Intake Total 1000 ml 0 ml Balance 1000 ml 0 ml Intake Oral 0 ml IV Total 1000 ml # Voids 1 # Bowel Movements 0 Imaging Last Impressions Abdomen/Pelvis CT 02/23/17 1541 Signed Impressions: Service Date/Time: Thursday, February 23, 2017 16:16 - CONCLUSION: Small to moderate radiograph findings of pancreatitis. Trace ascites in the lesser sac is evident. I don't see gallstones. De Marinelli MD FACR Laboratory Test 02/24/17 09:24 02/24/17 12:45 White Blood Count 9.1 TH/MM3 Red Blood Count 3.53 MIL/MM3 Hemoglobin 12.5 GM/DL Hematocrit 37.3 % Mean Corpuscular Volume 105.7 FL Mean Corpuscular Hemoglobin 35.3 PG Mean Corpuscular Hemoglobin Concent 33.4 % Red Cell Distribution Width 15.7 % Platelet Count 154 TH/MM3 Mean Platelet Volume 9.6 FL Neutrophils (%) (Auto) 71.9 % Lymphocytes (%) (Auto) 20.0 % Monocytes (%) (Auto) 6.0 % Eosinophils (%) (Auto) 1.8 % Basophils (%) (Auto) 0.3 % Neutrophils # (Auto) 6.6 TH/MM3 Lymphocytes # (Auto) 1.8 TH/MM3 Monocytes # (Auto) 0.5 TH/MM3 Eosinophils # (Auto) 0.2 TH/MM3 Basophils # (Auto) 0.0 TH/MM3 CBC Comment DIFF FINAL Differential Comment Blood Urea Nitrogen 4 MG/DL Creatinine 0.47 MG/DL Random Glucose 92 MG/DL Total Protein 5.9 GM/DL Albumin 3.0 GM/DL Calcium Level 7.7 MG/DL Phosphorus Level 2.6 MG/DL Magnesium Level 1.7 MG/DL Alkaline Phosphatase 87 U/L Aspartate Amino Transf (AST/SGOT) 46 U/L Alanine Aminotransferase (ALT/SGPT) 28 U/L Total Bilirubin 0.7 MG/DL Sodium Level 139 MEQ/L Potassium Level 3.3 MEQ/L Chloride Level 103 MEQ/L Carbon Dioxide Level 32.0 MEQ/L Anion Gap 4 MEQ/L Estimat Glomerular Filtration Rate 155 ML/MIN Hemoglobin A1c 5.5 % Lipase 8318 U/L Free Thyroxine 0.86 NG/DL Thyroid Stimulating Hormone 3rd Gen 2.270 uIU/ML Urine Color YELLOW Urine Turbidity HAZY Urine pH 7.0 Urine Specific Logan 1.008 Urine Protein TRACE mg/dL Urine Glucose (UA) NEG mg/dL Urine Ketones NEG mg/dL Urine Occult Blood LARGE Urine Nitrite NEG Urine Bilirubin NEG Urine Urobilinogen LESS THAN 2.0 MG/DL Urine Leukocyte Esterase NEG Urine RBC 1 /hpf Urine WBC 5 /hpf Urine Squamous Epithelial Cells 6 /hpf Urine Amorphous Sediment OCC Urine Bacteria RARE /hpf Urine Mucus FEW /lpf Microscopic Urinalysis Comment CULT NOT INDICATED Urine Opiates Screen POS Urine Barbiturates Screen NEG Urine Amphetamines Screen NEG Urine Benzodiazepines Screen POS Urine Cocaine Screen NEG Urine Cannabinoids Screen POS Physical Examination HEENT: PERRL; normocephalic; atraumatic; no jaundice. CHEST: respirations unlabored CARDIAC: RRR ABDOMEN: Soft, mildly, rebound TTP, TTP epigastrium & LUQ; bowel sounds are present in all four quadrants. EXTREMITIES: No clubbing, cyanosis, or edema. SKIN: Normal; no rash; no jaundice. 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 Assessment and Plan Plan ASSESSMENT - acute pancreatitis - 2/2 ETOH. lipase elevated, now dereasing. n/v improved. still with abd pain. 2nd episode. CT imaging as above, suggestive pancreatitis, no gallstones. - macrocytosis, elevated AST - ETOH PLAN - clear liquid diet - trend lipase - urged ETOH cessation - supportive care This pt seen by myself and Dr Babcock and this note is written on his behalf Ketty Crockett Feb 24, 2017 15:50
[2017-02-24] MEDS: ENOXAPARIN SODIUM 40 MG/0.4 ML SYRINGE SQ SCH (17:02)
[2017-02-24] MEDS: THIAMINE INJ 100 MG in SODIUM CHLORIDE 0.9% INJ 100 ML IV SCH (17:02)
[2017-02-24] MEDS: MULTIVITAMIN INJ 10 ML, FOLIC ACID INJ 1 MG in SODIUM CHLORID 0.9% 500 ML INJ 500 ML IV SCH (18:07)
[2017-02-24] MEDS: ZOLPIDEM TARTRATE 5 MG TAB PO PRN (21:24)
[2017-02-25] VITALS: BP 118/65; PULSE 79; PULSE 80; RESP 17; TEMP 98; O2SAT 96
[2017-02-25] MEDS: D5-1/2 NS + KCL 20 MEQ INJ 1,000 ML IV SCH ×4 (02:14→22:49)
[2017-02-25] MEDS: MORPHINE SULFATE 2 MG/ML INJ IV PUSH PRN ×5 (02:14→20:41)
[2017-02-25 04:00] VITALS: BP 100/60; PULSE 66; PULSE 81; RESP 17; TEMP 98.1; O2SAT 99
[2017-02-25 08:08] VITALS: BP 102/60; PULSE 84; RESP 17; TEMP 98.2; O2SAT 100
[2017-02-25] MEDS: SODIUM CHLORIDE 0.9% FLUSH 10 ML FLUSH IV FLUSH SCH ×2 (09:00→20:40)
[2017-02-25 10:05] LABS: ALBUMIN 2.9 GM/DL (3.4-5.0); AST (GOT) 40 U/L (15-37); BICARBONATE 28.2 MEQ/L (21.0-32.0); BLOOD UREA NITROGEN 2 MG/DL (7-18); CHLORIDE 103 MEQ/L (98-107); CREATININE 0.52 MG/DL (0.50-1.00); GLUCOSE,RANDOM 91 MG/DL (74-106); SODIUM (NA) 137 MEQ/L (136-145)
[2017-02-25 10:06] LABS: ALT (GPT) 23 U/L (10-53)
[2017-02-25 10:08] LABS: ALKALINE PHOSPHATASE 83 U/L (45-117); LIPASE 1717 U/L (73-393); TOTAL BILIRUBIN ADULT 0.6 MG/DL (0.2-1.0); TOTAL PROTEIN 5.8 GM/DL (6.4-8.2)
[2017-02-25] MEDS: FAMOTIDINE 20 MG TAB PO SCH ×2 (10:08→20:40)
[2017-02-25] MEDS: DOCUSATE SODIUM 50 MG/SENNA 8.6 MG TAB PO SCH ×2 (10:09→20:40)
--- NOTE | 2017-02-25 11:06 | HHI.PR ---
Subjective Remarks Follow-up Acute recurrent pancreatitis 02/24/17-patient seen and examined, still complains of abdominal pain however denies any nausea or vomiting 02/25/17-patient seen and examined, states she still has abdominal and back pain or denies any emesis. Currently afebrile and lipase trending down Objective Vitals Vital Signs Date Time Temp Pulse Resp B/P (MAP) Pulse Ox O2 Delivery O2 Flow Rate FiO2 02/25/17 08:08 98.2 84 17 102/60 (74) 100 02/25/17 05:29 20 02/25/17 04:00 66 02/25/17 04:00 98.1 81 17 100/60 (73) 99 02/25/17 00:00 79 02/25/17 00:00 98.0 80 17 118/65 (82) 96 02/24/17 20:00 98.1 82 17 100/64 (76) 100 02/24/17 20:00 87 02/24/17 16:08 98.3 85 16 100/57 (71) 97 02/24/17 12:35 98.0 86 16 106/68 (81) 97 I/O 02/24/17 02/24/17 02/24/17 02/25/17 02/25/17 02/25/17 07:00 15:00 23:00 07:00 15:00 23:00 Intake Total 0 ml 1500 ml 2650 ml Output Total 500 ml Balance 0 ml 1000 ml 2650 ml Intake Oral 0 ml 0 ml 650 ml IV Total 1500 ml 2000 ml Output Urine Total 500 ml # Voids 1 2 4 # Bowel Movements 0 0 0 Result Diagram: 02/24/17 0924 02/25/17 0815 Imaging Last Impressions Abdomen/Pelvis CT 02/23/17 1541 Signed Impressions: Service Date/Time: Thursday, February 23, 2017 16:16 - CONCLUSION: Small to moderate radiograph findings of pancreatitis. Trace ascites in the lesser sac is evident. I don't see gallstones. De Marinelli MD FACR Objective Remarks GENERAL: NAD SKIN: Warm and dry. HEAD: Normocephalic. EYES: No scleral icterus. No injection or drainage. NECK: Supple, trachea midline. No JVD or lymphadenopathy. CARDIOVASCULAR: Regular rate and rhythm without murmurs, gallops, or rubs. RESPIRATORY: Breath sounds equal bilaterally. No accessory muscle use. GASTROINTESTINAL: Abdomen soft, mildly tender, nondistended. +BS MUSCULOSKELETAL: No cyanosis, or edema. BACK: Nontender without obvious deformity. No CVA tenderness. A/P Problem List: (1) Acute recurrent pancreatitis ICD Code: K85.90 - Acute pancreatitis without necrosis or infection, unspecified (2) Hypokalemia ICD Code: E87.6 - Hypokalemia Status: Acute Assessment and Plan 31-year-old female with Acute recurrent pancreatitis Lipase trending down with IV fluid hydration Continue with aggressive medical management Continue with IV fluid hydration, clear liquid diet, antiemetic, pain management accordingly Appreciate input from GI Hypokalemia Replace electrolytes accordingly DVT prophylaxis: Bilateral SCDs GI prophylaxis: PPI Lucas Jordan MD Feb 25, 2017 11:06
[2017-02-25] MEDS ORDERED: POTASSIUM CHLORIDE 25 MEQ EFFERVESCENT TAB PO ONE (11:15)
[2017-02-25 12:08] VITALS: BP 110/73; PULSE 85; RESP 17; TEMP 98.1; O2SAT 99
[2017-02-25 16:08] VITALS: BP 116/74; PULSE 82; RESP 17; TEMP 98.4; O2SAT 98
[2017-02-25] MEDS: MULTIVITAMIN INJ 10 ML, FOLIC ACID INJ 1 MG in SODIUM CHLORID 0.9% 500 ML INJ 500 ML IV SCH (16:59)
[2017-02-25] MEDS: ENOXAPARIN SODIUM 40 MG/0.4 ML SYRINGE SQ SCH (17:00)
[2017-02-25] MEDS: THIAMINE INJ 100 MG in SODIUM CHLORIDE 0.9% INJ 100 ML IV SCH (17:01)
[2017-02-25 20:16] VITALS: BP 128/66; PULSE 88; RESP 17; TEMP 98.5; O2SAT 97
[2017-02-25] MEDS: ZOLPIDEM TARTRATE 5 MG TAB PO PRN (22:49)
[2017-02-26] VITALS: BP 103/58; PULSE 82; RESP 16; TEMP 98.8; O2SAT 96
[2017-02-26] MEDS: MORPHINE SULFATE 2 MG/ML INJ IV PUSH PRN ×3 (00:23→09:10)
[2017-02-26 04:00] VITALS: BP 116/57; PULSE 94; RESP 16; TEMP 98.6; O2SAT 97
[2017-02-26] MEDS: D5-1/2 NS + KCL 20 MEQ INJ 1,000 ML IV SCH ×2 (04:54→11:40)
[2017-02-26 08:00] VITALS: BP 110/67; PULSE 92; RESP 20; TEMP 98.2; O2SAT 99
[2017-02-26 08:18] LABS: ALBUMIN 2.8 GM/DL (3.4-5.0); AST (GOT) 43 U/L (15-37); BICARBONATE 26.8 MEQ/L (21.0-32.0); BLOOD UREA NITROGEN LESS THAN 1 MG/DL (7-18); CHLORIDE 105 MEQ/L (98-107); CREATININE 0.54 MG/DL (0.50-1.00); GLOMERULAR FILTRATION RATE 132 ML/MIN (>89); GLUCOSE,RANDOM 85 MG/DL (74-106); LIPASE 656 U/L (73-393); SODIUM (NA) 138 MEQ/L (136-145)
[2017-02-26 08:19] LABS: ALT (GPT) 24 U/L (10-53)
[2017-02-26 08:22] LABS: ALKALINE PHOSPHATASE 100 U/L (45-117); TOTAL BILIRUBIN ADULT 0.4 MG/DL (0.2-1.0); TOTAL PROTEIN 5.8 GM/DL (6.4-8.2)
[2017-02-26] MEDS ORDERED: THIAMINE HCL 100 MG TAB PO SCH (09:00)
[2017-02-26] MEDS: DOCUSATE SODIUM 50 MG/SENNA 8.6 MG TAB PO SCH (09:00)
[2017-02-26] MEDS: FAMOTIDINE 20 MG TAB PO SCH (09:04)
[2017-02-26] MEDS: SODIUM CHLORIDE 0.9% FLUSH 10 ML FLUSH IV FLUSH SCH (09:05)
[2017-02-26 10:01] VITALS: O2SAT 97
[2017-02-26] MEDS ORDERED: VITA100T54 PO (10:02)
--- NOTE | 2017-02-26 10:07 | HHI.PR ---
Subjective Remarks Follow-up Acute recurrent pancreatitis 02/24/17-patient seen and examined, still complains of abdominal pain however denies any nausea or vomiting 02/25/17-patient seen and examined, states she still has abdominal and back pain or denies any emesis. Currently afebrile and lipase trending down 02/26/17-patient seen and examined, reports significant improvement of abdominal pain lipase down to 600+ and case discussed with mother at the bedside Objective Vitals Vital Signs Date Time Temp Pulse Resp B/P (MAP) Pulse Ox O2 Delivery O2 Flow Rate FiO2 02/26/17 09:15 16 02/26/17 04:00 98.6 94 16 116/57 (76) 97 02/26/17 00:28 16 02/26/17 00:00 98.8 82 16 103/58 (73) 96 02/25/17 20:16 98.5 88 17 128/66 (86) 97 02/25/17 16:08 98.4 82 17 116/74 (88) 98 02/25/17 12:08 98.1 85 17 110/73 (85) 99 I/O 02/25/17 02/25/17 02/25/17 02/26/17 02/26/17 02/26/17 07:00 15:00 23:00 07:00 15:00 23:00 Intake Total 2650 ml 1580 ml Output Total 300 ml Balance 2650 ml 1280 ml Intake Oral 650 ml 480 ml IV Total 2000 ml 1100 ml Output Urine Total 300 ml # Voids 4 4 # Bowel Movements 0 1 Result Diagram: 02/24/17 0924 02/26/17 0711 Imaging Last Impressions Abdomen/Pelvis CT 02/23/17 1541 Signed Impressions: Service Date/Time: Thursday, February 23, 2017 16:16 - CONCLUSION: Small to moderate radiograph findings of pancreatitis. Trace ascites in the lesser sac is evident. I don't see gallstones. De Marinelli MD FACR Objective Remarks GENERAL: NAD SKIN: Warm and dry. HEAD: Normocephalic. EYES: No scleral icterus. No injection or drainage. NECK: Supple, trachea midline. No JVD or lymphadenopathy. CARDIOVASCULAR: Regular rate and rhythm without murmurs, gallops, or rubs. RESPIRATORY: Breath sounds equal bilaterally. No accessory muscle use. GASTROINTESTINAL: Abdomen soft, mildly tender, nondistended. +BS MUSCULOSKELETAL: No cyanosis, or edema. BACK: Nontender without obvious deformity. No CVA tenderness. Procedures none A/P Problem List: (1) Acute recurrent pancreatitis ICD Code: K85.90 - Acute pancreatitis without necrosis or infection, unspecified Status: Resolved (2) Hypokalemia ICD Code: E87.6 - Hypokalemia Status: Acute Assessment and Plan 31-year-old female with Acute recurrent pancreatitis-Improving Lipase trending down with IV fluid hydration Continue with aggressive medical management Continue with IV fluid hydration, ADAT, antiemetic, pain management accordingly Appreciate input from GI Hypokalemia Replace electrolytes accordingly DVT prophylaxis: Bilateral SCDs GI prophylaxis: PPI Lucas Jordan MD Feb 26, 2017 10:07
[2017-02-26] MEDS ORDERED: TRAM50 PO (10:09)
--- NOTE | 2017-02-26 10:10 | HHI.DS ---
Discharge Summary Admission Date Feb 23, 2017 at 16:17 Discharge Date: Feb 26, 2017 Admitting Diagnosis Pancreatitis, hypokalemia (1) Acute recurrent pancreatitis ICD Code: K85.90 - Acute pancreatitis without necrosis or infection, unspecified Status: Resolved (2) Hypokalemia ICD Code: E87.6 - Hypokalemia Status: Acute Procedures none Brief History - From Admission Patient is a 31-year-old female who presents to [facility] emergency Department for evaluation of abdominal pain. Patient states that her symptoms have started this morning. She states that she has a sharp crampy pain in the epigastrium that radiates into her back and up into her left upper quadrant. Her symptoms are constant which they are associated with some nausea and some vomiting. She reports that she's had pancreatitis once before in the past. She reports that she does shots of alcohol every day. Denies any history of any abdominal surgery. Only surgery she states is dilatation of her urethra Denies any fever or chills flank pain dysuria cough or congestion recent travel no other complaints She was found to have pancreatitis with a quite elevated amylase and will be admitted and GI will be consult and will be kept nothing by mouth CBC/BMP: 02/24/17 0924 02/26/17 0711 Significant Findings Laboratory Tests Test 02/23/17 14:40 02/24/17 09:24 02/24/17 12:45 02/25/17 08:15 White Blood Count 11.3 TH/MM3 (4.0-11.0) Red Blood Count 3.84 MIL/MM3 (4.00-5.30) 3.53 MIL/MM3 (4.00-5.30) Mean Corpuscular Volume 104.5 FL (80.0-100.0) 105.7 FL (80.0-100.0) Mean Corpuscular Hemoglobin 35.7 PG (27.0-34.0) 35.3 PG (27.0-34.0) Neutrophils (%) (Auto) 82.5 % (16.0-70.0) 71.9 % (16.0-70.0) Neutrophils # (Auto) 9.3 TH/MM3 (1.8-7.7) Blood Urea Nitrogen 6 MG/DL (7-18) 4 MG/DL (7-18) 2 MG/DL (7-18) Random Glucose 144 MG/DL (74-106) Aspartate Amino Transf (AST/SGOT) 76 U/L (15-37) 46 U/L (15-37) 40 U/L (15-37) Sodium Level 135 MEQ/L (136-145) Potassium Level 2.5 MEQ/L (3.5-5.1) 3.3 MEQ/L (3.5-5.1) 3.4 MEQ/L (3.5-5.1) Chloride Level 96 MEQ/L (98-107) Phosphorus Level 2.3 MG/DL (2.5-4.9) Lipase 76337 U/L (73-393) 8318 U/L (73-393) 1717 U/L (73-393) Creatinine 0.47 MG/DL (0.50-1.00) Total Protein 5.9 GM/DL (6.4-8.2) 5.8 GM/DL (6.4-8.2) Albumin 3.0 GM/DL (3.4-5.0) 2.9 GM/DL (3.4-5.0) Calcium Level 7.7 MG/DL (8.5-10.1) 8.0 MG/DL (8.5-10.1) Anion Gap 4 MEQ/L (5-15) Urine Turbidity HAZY (CLEAR) Urine Occult Blood LARGE (NEG) Urine Bacteria RARE /hpf (NONE) Urine Mucus FEW /lpf (OCC) Urine Opiates Screen POS (NEG) Urine Benzodiazepines Screen POS (NEG) Urine Cannabinoids Screen POS (NEG) Test 02/26/17 07:11 Blood Urea Nitrogen LESS THAN 1 MG/DL (7-18) Total Protein 5.8 GM/DL (6.4-8.2) Albumin 2.8 GM/DL (3.4-5.0) Calcium Level 8.0 MG/DL (8.5-10.1) Aspartate Amino Transf (AST/SGOT) 43 U/L (15-37) Lipase 656 U/L (73-393) Imaging Last Impressions Abdomen/Pelvis CT 02/23/17 1541 Signed Impressions: Service Date/Time: Thursday, February 23, 2017 16:16 - CONCLUSION: Small to moderate radiograph findings of pancreatitis. Trace ascites in the lesser sac is evident. I don't see gallstones. De Marinelli MD FACR PE at Discharge GENERAL: NAD SKIN: Warm and dry. HEAD: Normocephalic. EYES: No scleral icterus. No injection or drainage. NECK: Supple, trachea midline. No JVD or lymphadenopathy. CARDIOVASCULAR: Regular rate and rhythm without murmurs, gallops, or rubs. RESPIRATORY: Breath sounds equal bilaterally. No accessory muscle use. GASTROINTESTINAL: Abdomen soft, mildly tender, nondistended. +BS MUSCULOSKELETAL: No cyanosis, or edema. BACK: Nontender without obvious deformity. No CVA tenderness. Hospital Course Patient was treated for acute recurrent pancreatitis with aggressive IV fluid resuscitation and her diet was advanced accordingly. Lipase level was monitor daily. All electrolyte abnormalities were corrected accordingly. Patient was also started on CIWA protocol along with rally pack. DVT and GI prophylaxis were provided. Prior to discharge, patient's condition improved and vital remained stable. Pt Condition on Discharge: Stable Discharge Disposition: Discharge Home Discharge Time: <= 30 minutes Discharge Instructions DIET: Follow Instructions for: Full Liquid Diet Activities you can perform: Regular-No Restrictions Follow up Referrals: PCP Follow-up - 1 Week New Medications: Thiamine (Vitamin B-1) 100 Mg Tab 100 MG PO DAILY for Nutritional Supplement, #30 TAB 0 Refills Tramadol (Ultram) 50 Mg Tab 50 MG PO Q6H PRN for PAIN, #20 TAB 0 Refills Lucas Jordan MD Feb 26, 2017 10:10
[2017-02-26 12:00] VITALS: BP 107/58; PULSE 92; RESP 20; TEMP 98.1; O2SAT 99
== END 2017-02-26 15:50 | disposition home or self-care (01) | DRG 440 ==
LOC: NEPE 13:09 → NEDA 16:17 → N04B 18:09
PROVIDERS: ADMIT Hospitalist; ATTEND Hospitalist
DX: K85.20 Alcohol induced acute pancreatitis without necrosis or infection (principal); E87.6 Hypokalemia; D75.89 Other specified diseases of blood and blood-forming organs; F10.10 Alcohol abuse, uncomplicated; F12.90 Cannabis use, unspecified, uncomplicated; F17.290 Nicotine dependence, other tobacco product, uncomplicated; Y90.0 Blood alcohol level of less than 20 mg/100 ml
CPT/HCPCS: 74177; 80053; 80307; 81001; 82948; 83036; 83690; 83735; 84100; 84439; 84443; 84478; 84703; 85025; 93005; 96361; 96365; 96375; C9113; J1650; J2270; J2405; J3411; J3480; J7030; J7040; Q9967